=== PATIENT | male | born 1945 | race Caucasian/White ===

== ENCOUNTER 2016-10-16 15:20 | Inpatient (IN) | payer OTHER, BC ==
[~2016-10-16] VITALS: Ht 177.8 cm; Wt 87.0 kg
[~2016-10-16 15:20] MED LIST: ECOTRIN325 MG PO; FENOFIBRATE145 M1 PO; FLOVENT 11120 INHALA IH; FLOVENT DISKUS1 DIS2 IH; FUROSEMIDE40 MG PO; INDOCIN50 MG PO; K-DUR10 MEQ PO; KLOR-CON 1010 ME1 PO; LASIX40 MG PO; LISINOPRIL20 MG PO; PLAVIX75 MG PO; PRINIVIL20 MG PO; SOTALOL80 MG PO; STOOL SOFTENER1 EAC2 PO; STOOL SOFTENER100 MG PO; TOPROL XL6.25 MG PO; TRICOR145 MG PO
[2016-10-16 15:43] LABS: CREATININE 1.8 mg/dL (0.6-1.3); POTASSIUM 3.7 mEq/L (3.7-5.4)
[2016-10-16 15:57] LABS: BASE EXCESS -17.6 mEq/L (-3 to +3); BICARBONATE 9.6 mEq/L (22-26); METHEMOGLOBIN 0.8 % (0-1.5); PCO2 27 mm Hg (35-45); PO2 221 mm Hg (80-100); SITE ALINE; pH 7.16 (7.35-7.45)
[2016-10-16 15:58] LABS: COMMENTS - BLOOD GASES A+; DEVICE AMBU BAG; FI02 100 %; O2 FLOW 15 L/MIN
[2016-10-16 15:58] LABS: BASOPHIL COUNT 0.1 K/uL (0-0.1); EOSINOPHIL (%) 1.6 % (0-5); EOSINOPHIL COUNT 0.2 K/uL (0-0.3); IMMATURE GRANULOCYTE (%) 1.7 % (0.0-0.7); IMMATURE GRANULOCYTE COUNT 1.8 K/uL; LYMPHOCYTE COUNT 3.3 K/uL (1.0-2.8); MONOCYTE (%) 6.4 % (3-12); MONOCYTE COUNT 0.7 K/uL (0-0.8); NEUTROPHIL COUNT 6.3 K/uL (1.8-6.4)
[2016-10-16 16:08] LABS: INTER. NORMALIZED RATIO 1.6; PROTHROMBIN TIME 16.1 (9.2-11.2)
[2016-10-16 16:10] LABS: AMYLASE 48 IU/L (1-118); CHLORIDE 105 mEq/L (99-109); POTASSIUM 3.6 mEq/L (3.7-5.4); SODIUM 141 mEq/L (136-147)
[2016-10-16 16:12] LABS: GLUCOSE 233 mg/dL (70-99)
[2016-10-16 16:13] LABS: ANION GAP 21 MEQ/L (2-14)
[2016-10-16 16:15] LABS: SERUM ETHYL ALCOHOL < 10 mg/dL
[2016-10-16 16:16] LABS: GFR ESTIMATE (CALCULATED) 33 mL/min/
[2016-10-16 16:17] LABS: UREA NITROGEN (BUN) 36 mg/dL (9-23)
[2016-10-16 16:19] LABS: LIPASE 85 U/L (1.0-51.0)
[2016-10-16 16:21] LABS: TROP-I INTERPRETATION NEGATIVE; TROPONIN-I 0.11 ng/mL (0.0-0.30)
[2016-10-16 16:36] LABS: HEMATOCRIT 45.1 % (38.0-50.0); MCH 31.4 PG (29.0-34.0); MCHC 32.8 G/DL (30.0-36.0); MCV 95.6 FL (86-99); MEAN PLAT.VOLUME 13.2 uM^3 (9.0-12.4); PLAT.SUFFICIENCY DECREASED; PLATELET COUNT 118 K/uL (156-360); RBC DIS.WIDTH-CV 15.1 % (11.8-14.6); RBC DIS.WIDTH-SD 51.1 % (39-53); RED BLOOD COUNT 4.72 M/uL (4.00-5.50); WHITE BLOOD COUNT 10.7 K/uL (4.1-10.2)
[2016-10-16 19:00] VITALS: BP 104/41
[2016-10-16 19:44] LABS: BASE EXCESS 2.2 mEq/L (-3 to +3); CARBOXY HGB 2.2 % (0-5); METHEMOGLOBIN 1.4 % (0-1.5); PCO2 30 mm Hg (35-45)
[2016-10-16 19:45] LABS: BICARBONATE 24.5 mEq/L (22-26); COMMENTS - BLOOD GASES C+; DEVICE VENT; FI02 60 %; MECHANICAL RATE 16 resp/min; MODE AC; PEEP 5 CM/H20; PO2 79 mm Hg (80-100); SITE ALINE; TIDAL VOLUME 490 ML; TOTAL RESP RATE 32 resp/min; pH 7.52 (7.35-7.45)
[2016-10-16 19:56] LABS: METH RESISTANT S AUREUS PCR NEGATIVE (NEGATIVE)
[2016-10-16 20:00] VITALS: BP 152/49
[2016-10-16 20:04] LABS: PROBE CHECK PASS; SPECIMEN PROCESSING CONTROL PASS
[2016-10-16 20:15] LABS: MCH 30.5 PG (29.0-34.0); MCHC 33.1 G/DL (30.0-36.0); MCV 92.3 FL (86-99); MEAN PLAT.VOLUME 12.8 uM^3 (9.0-12.4); PLATELET COUNT 173 K/uL (156-360); RBC DIS.WIDTH-CV 14.6 % (11.8-14.6); RBC DIS.WIDTH-SD 49.6 % (39-53); WHITE BLOOD COUNT 15.3 K/uL (4.1-10.2)
[2016-10-16 20:18] LABS: INTER. NORMALIZED RATIO 1.8; PROTHROMBIN TIME 18.5 (9.2-11.2); PTT 24.3 (25-32)
[2016-10-16 20:31] LABS: TROP-I INTERPRETATION POSITIVE; TROPONIN-I 8.52 ng/mL (0.0-0.30)
[2016-10-16 20:39] LABS: ANION GAP 16 MEQ/L (2-14); CHLORIDE 107 MEQ/L (99-109); POTASSIUM 4.1 MEQ/L (3.7-5.4); SAMPLE HEMOLYSIS CHECK 0; SAMPLE ICTERIC CHECK 0; SAMPLE LIPEMIA CHECK 0; SODIUM 146 MEQ/L (136-147); TOTAL BILIRUBIN 2.2 MG/DL (0.0-1.0)
[2016-10-16 20:45] LABS: ALKALINE PHOSPHATASE 36 IU/L (3-129); GFR ESTIMATE (CALCULATED) 37 mL/min/; GLUCOSE 217 mg/dL (70-99); UREA NITROGEN (BUN) 38 mg/dL (9-23)
[2016-10-16 21:00] VITALS: BP 132/49
[2016-10-16 21:12] VITALS: BP 149/56
[2016-10-16 22:00] VITALS: BP 103/61
[2016-10-16 23:00] VITALS: BP 83/55
[2016-10-17] VITALS (14 sets, daily range): BP systolic 88–137; BP diastolic 51–76
[2016-10-17 00:27] LABS: CREATINE KINASE 922 IU/L (1-294); TOTAL CK 922 IU/L (1-294)
[2016-10-17 00:32] LABS: TROP-I INTERPRETATION POSITIVE
[2016-10-17 00:33] LABS: CK-MB 35.2 ng/mL (0.0-4.9)
[2016-10-17 02:11] LABS: MAGNESIUM 1.5 mg/dL (1.3-2.7)
[2016-10-17 07:07] LABS: EOSINOPHIL (%) 0 % (0-5); HEMATOCRIT 31.3 % (38.0-50.0); IMMATURE GRANULOCYTE (%) 0.1 % (0.0-0.7); LYMPHOCYTE COUNT 0.5 K/uL (1.0-2.8); MCH 30.2 PG (29.0-34.0); MCHC 33.2 G/DL (30.0-36.0); MEAN PLAT.VOLUME 12.6 uM^3 (9.0-12.4); MONOCYTE (%) 7.9 % (3-12); MONOCYTE COUNT 0.7 K/uL (0-0.8); NEUTROPHIL (%) 87.1 % (45-76); NEUTROPHIL COUNT 8.1 K/uL (1.8-6.4); PLATELET COUNT 142 K/uL (156-360); RBC DIS.WIDTH-SD 50.4 % (39-53); RED BLOOD COUNT 3.44 M/uL (4.00-5.50)
[2016-10-17 07:08] LABS: WHITE BLOOD COUNT 9.3 K/uL (4.1-10.2)
[2016-10-17 07:27] LABS: TROP-I INTERPRETATION POSITIVE
[2016-10-17 07:31] LABS: CK-MB 28.8 ng/mL (0.0-4.9)
[2016-10-17 07:34] LABS: TROPONIN-I 13.89 ng/mL (0.0-0.30)
[2016-10-17 07:50] LABS: CREATINE KINASE 731 IU/L (1-294); MAGNESIUM 1.5 mg/dl (1.3-2.7); SAMPLE HEMOLYSIS CHECK 0; SAMPLE ICTERIC CHECK 0; SAMPLE LIPEMIA CHECK 0; TOTAL CK 731 IU/L (1-294)
[2016-10-17 08:02] LABS: ALKALINE PHOSPHATASE 30 IU/L (3-129); ANION GAP 12 MEQ/L (2-14); CHLORIDE 109 MEQ/L (99-109); GFR ESTIMATE (CALCULATED) 24 mL/min/; GLUCOSE 158 mg/dL (70-99); POTASSIUM 3.8 MEQ/L (3.7-5.4); SODIUM 142 MEQ/L (136-147); TOTAL BILIRUBIN 2.2 MG/DL (0.0-1.0); UREA NITROGEN (BUN) 43 mg/dL (9-23)
[2016-10-17 09:04] LABS: ADD MIUA? YES; BILIRUBIN SMALL; BLOOD LARGE; COLOR DK YELLOW ((YELLOW)); GLUCOSE (STRIP) 100; KETONES TRACE; LEUKOCYTES TRACE; NITRITE NEGATIVE; PROTEIN (STRIP) 100; SPECIFIC GRAVITY 1.019 (1.000-1.030)
[2016-10-17 09:29] LABS: EPITHELIAL CELLS RARE
[2016-10-17 09:30] LABS: BACTERIA 2+; CASTS PRESENT /LPF; CRYSTALS NONE SEEN; MUCUS TRACE; UCUL ADDED? YES
[2016-10-17 09:39] LABS: AMPHETAMINES QUANT VALUE 0 NG/ML; BARBITUATES QUANT VALUE 0 NG/ML; BENZODIAZEPINES, URINE SCREEN POSITIVE (200 ng/mL); MARIJUANA QUANT VALUE 0 NG/ML; OPIATES QUANTITATIVE VALUE 0 NG/ML; PHENCYCLIDINE QUANT VALUE 0 NG/ML
[2016-10-17 12:15] LABS: CREATINE KINASE 616 IU/L (1-294); TOTAL CK 616 IU/L (1-294)
[2016-10-17 12:17] LABS: CK-MB 19.2 ng/mL (0.0-4.9); TROP-I INTERPRETATION POSITIVE
[2016-10-17 12:24] LABS: TROPONIN-I 10.63 ng/mL (0.0-0.30)
[2016-10-17 18:08] LABS: CREATINE KINASE 501 IU/L (1-294); TOTAL CK 501 IU/L (1-294)
[2016-10-17 18:11] LABS: TROP-I INTERPRETATION POSITIVE; TROPONIN-I 6.87 ng/mL (0.0-0.30)
[2016-10-17 18:33] LABS: CK-MB 10.5 ng/mL (0.0-4.9)
[2016-10-18 01:00] VITALS: BP 82/48
[2016-10-18 01:35] LABS: CHLORIDE 111 mEq/L (99-109); POTASSIUM 3.9 mEq/L (3.7-5.4); SODIUM 144 mEq/L (136-147)
[2016-10-18 01:37] LABS: INTER. NORMALIZED RATIO 1.6; PTT 30.1 (25-32)
[2016-10-18 01:38] LABS: GLUCOSE 155 mg/dL (70-99)
[2016-10-18 01:39] LABS: ANION GAP 13 MEQ/L (2-14)
[2016-10-18 01:40] LABS: TOTAL BILIRUBIN 2.3 mg/dL (0.0-1.0)
[2016-10-18 01:41] LABS: ALKALINE PHOSPHATASE 25 IU/L (3-129)
[2016-10-18 01:43] LABS: UREA NITROGEN (BUN) 53 mg/dL (9-23)
[2016-10-18 01:54] LABS: GFR ESTIMATE (CALCULATED) 16 mL/min/; MAGNESIUM 1.9 mg/dL (1.3-2.7)
[2016-10-18 02:00] LABS: HEMATOCRIT 19.4 % (38.0-50.0); MCH 30.5 PG (29.0-34.0); MCV 92.3 FL (86-99); MEAN PLAT.VOLUME 12.6 uM^3 (9.0-12.4); PLATELET COUNT 130 K/uL (156-360); RBC DIS.WIDTH-CV 15.3 % (11.8-14.6); RBC DIS.WIDTH-SD 49.3 % (39-53); WHITE BLOOD COUNT 8.5 K/uL (4.1-10.2)
[2016-10-18 02:07] LABS: FIBRINOGEN 141 MG/DL (160-450)
[2016-10-18 03:23] VITALS: BP 64/38
[2016-10-18 03:39] VITALS: BP 89/49
[2016-10-18 08:40] VITALS: BP 137/75
[2016-10-18 08:54] LABS: HEMATOCRIT 36.4 % (38.0-50.0); INTER. NORMALIZED RATIO 1.4; MCH 29.6 PG (29.0-34.0); MCHC 32.4 G/DL (30.0-36.0); MCV 91.2 FL (86-99); MEAN PLAT.VOLUME 12.5 uM^3 (9.0-12.4); PLATELET COUNT 94 K/uL (156-360); PROTHROMBIN TIME 14.7 (9.2-11.2); RBC DIS.WIDTH-CV 16.8 % (11.8-14.6); RBC DIS.WIDTH-SD 55.4 % (39-53); WHITE BLOOD COUNT 8.1 K/uL (4.1-10.2)
[2016-10-18 08:55] LABS: RED BLOOD COUNT 3.99 M/uL (4.00-5.50)
[2016-10-18 08:57] LABS: EOSINOPHIL (%) 0.1 % (0-5); HEMATOCRIT 35.7 % (38.0-50.0); IMMATURE GRANULOCYTE (%) 0.2 % (0.0-0.7); LYMPHOCYTE COUNT 0.4 K/uL (1.0-2.8); MCH 30.2 PG (29.0-34.0); MCHC 33.1 G/DL (30.0-36.0); MCV 91.3 FL (86-99); MEAN PLAT.VOLUME 12.9 uM^3 (9.0-12.4); MONOCYTE (%) 10.6 % (3-12); MONOCYTE COUNT 0.9 K/uL (0-0.8); NEUTROPHIL (%) 84.6 % (45-76); PLATELET COUNT 95 K/uL (156-360); RBC DIS.WIDTH-SD 55.6 % (39-53); WHITE BLOOD COUNT 8.3 K/uL (4.1-10.2)
[2016-10-18 08:58] LABS: RED BLOOD COUNT 3.91 M/uL (4.00-5.50)
[2016-10-18 09:19] LABS: ALKALINE PHOSPHATASE 28 IU/L (3-129); ANION GAP 15 MEQ/L (2-14); CHLORIDE 110 MEQ/L (99-109); GFR ESTIMATE (CALCULATED) 17 mL/min/; GLUCOSE 158 mg/dL (70-99); SAMPLE HEMOLYSIS CHECK 0; SAMPLE ICTERIC CHECK 1; SAMPLE LIPEMIA CHECK 0; SODIUM 145 MEQ/L (136-147); UREA NITROGEN (BUN) 51 mg/dL (9-23)
[2016-10-18 09:21] LABS: TOTAL BILIRUBIN 3.4 MG/DL (0.0-1.0)
[2016-10-18 10:45] VITALS: BP 143/82
[2016-10-18 11:45] VITALS: BP 134/78
[2016-10-18 12:10] LABS: HEMATOCRIT 36.6 % (38.0-50.0); MCV 90.4 FL (86-99)
[2016-10-18 15:59] LABS: HEMATOCRIT 37.1 % (38.0-50.0); MCV 89.8 FL (86-99)
[2016-10-18 18:05] LABS: INTER. NORMALIZED RATIO 1.4; PROTHROMBIN TIME 14.7 (9.2-11.2); PTT 28.2 (25-32)
[2016-10-18 18:16] LABS: ALKALINE PHOSPHATASE 30 IU/L (3-129); ANION GAP 19 MEQ/L (2-14); CHLORIDE 109 MEQ/L (99-109); GFR ESTIMATE (CALCULATED) 16 mL/min/; GLUCOSE 152 mg/dL (70-99); POTASSIUM 3.9 MEQ/L (3.7-5.4); SAMPLE HEMOLYSIS CHECK 0; SAMPLE ICTERIC CHECK 0; SAMPLE LIPEMIA CHECK 0; SODIUM 146 MEQ/L (136-147); TOTAL BILIRUBIN 3.2 MG/DL (0.0-1.0); UREA NITROGEN (BUN) 55 mg/dL (9-23)
[2016-10-18 18:57] LABS: HEMATOCRIT 36.8 % (38.0-50.0); MCV 89.1 FL (86-99)
[2016-10-18 20:48] LABS: POINT-OF-CARE METER ID UU13113748
[2016-10-18 23:12] LABS: HEMATOCRIT 36.4 % (38.0-50.0); MCV 87.5 FL (86-99)
[2016-10-18 23:44] LABS: POINT-OF-CARE METER ID UU14162636
[2016-10-19 03:21] LABS: HEMATOCRIT 34.8 % (38.0-50.0); MCV 86.6 FL (86-99)
[2016-10-19 05:55] LABS: POINT-OF-CARE METER ID UU14174217
[2016-10-19 07:40] LABS: HEMATOCRIT 34.6 % (38.0-50.0); MCH 29.9 PG (29.0-34.0); MCHC 33.5 G/DL (30.0-36.0); MCV 89.2 FL (86-99); MEAN PLAT.VOLUME 12.6 uM^3 (9.0-12.4); PLATELET COUNT 105 K/uL (156-360); RBC DIS.WIDTH-CV 16.8 % (11.8-14.6); RBC DIS.WIDTH-SD 54.2 % (39-53); RED BLOOD COUNT 3.88 M/uL (4.00-5.50); WHITE BLOOD COUNT 8.3 K/uL (4.1-10.2)
[2016-10-19 07:58] LABS: EOSINOPHIL (%) 0.1 % (0-5); IMMATURE GRANULOCYTE (%) 0.1 % (0.0-0.7); LYMPHOCYTE COUNT 0.4 K/uL (1.0-2.8); MONOCYTE (%) 14.1 % (3-12); MONOCYTE COUNT 1.2 K/uL (0-0.8); NEUTROPHIL (%) 80.6 % (45-76); NEUTROPHIL COUNT 6.7 K/uL (1.8-6.4)
[2016-10-19 08:12] LABS: ALKALINE PHOSPHATASE 26 IU/L (3-129); ANION GAP 15 MEQ/L (2-14); CHLORIDE 111 MEQ/L (99-109); GFR ESTIMATE (CALCULATED) 13 mL/min/; GLUCOSE 163 mg/dL (70-99); POTASSIUM 3.9 MEQ/L (3.7-5.4); SAMPLE HEMOLYSIS CHECK 0; SAMPLE ICTERIC CHECK 1; SAMPLE LIPEMIA CHECK 0; SODIUM 146 MEQ/L (136-147); TOTAL BILIRUBIN 3.4 MG/DL (0.0-1.0); UREA NITROGEN (BUN) 61 mg/dL (9-23)
[2016-10-19 11:00] VITALS: BP 134/78
[2016-10-19 11:08] LABS: HEMATOCRIT 34.6 % (38.0-50.0); MCV 88.7 FL (86-99)
[2016-10-19 15:01] LABS: HEMATOCRIT 34.4 % (38.0-50.0); MCV 88.7 FL (86-99)
[2016-10-19 18:25] LABS: POINT-OF-CARE METER ID UU14162636
[2016-10-19 19:11] LABS: HEMATOCRIT 34.6 % (38.0-50.0)
[2016-10-19 19:33] LABS: ANION GAP 15 MEQ/L (2-14); CHLORIDE 111 MEQ/L (99-109); GFR ESTIMATE (CALCULATED) 14 mL/min/; GLUCOSE 142 mg/dL (70-99); POTASSIUM 4.3 MEQ/L (3.7-5.4); SAMPLE HEMOLYSIS CHECK 2; SAMPLE ICTERIC CHECK 0; SAMPLE LIPEMIA CHECK 0; SODIUM 146 MEQ/L (136-147); UREA NITROGEN (BUN) 63 mg/dL (9-23)
[2016-10-19 21:00] VITALS: BP 138/85
[2016-10-19 23:46] LABS: HEMATOCRIT 34.3 % (38.0-50.0); MCV 88.6 FL (86-99)
[2016-10-20] VITALS (12 sets, daily range): BP systolic 114–148; BP diastolic 65–82
[2016-10-20 00:37] LABS: POINT-OF-CARE METER ID UU14174217
[2016-10-20 05:46] LABS: MCH 29.5 PG (29.0-34.0); MCHC 33.2 G/DL (30.0-36.0); MCV 88.8 FL (86-99); RBC DIS.WIDTH-CV 16.5 % (11.8-14.6); RBC DIS.WIDTH-SD 53.5 % (39-53); RED BLOOD COUNT 3.83 M/uL (4.00-5.50); WHITE BLOOD COUNT 8.9 K/uL (4.1-10.2)
[2016-10-20 05:57] LABS: POINT-OF-CARE METER ID UU13113731
[2016-10-20 06:16] LABS: ALKALINE PHOSPHATASE 29 IU/L (3-129); ANION GAP 16 MEQ/L (2-14); CHLORIDE 111 MEQ/L (99-109); GFR ESTIMATE (CALCULATED) 14 mL/min/; GLUCOSE 135 mg/dL (70-99); MAGNESIUM 2.2 mg/dl (1.3-2.7); SAMPLE HEMOLYSIS CHECK 2; SAMPLE ICTERIC CHECK 1; SAMPLE LIPEMIA CHECK 0; SODIUM 147 MEQ/L (136-147); UREA NITROGEN (BUN) 66 mg/dL (9-23)
[2016-10-20 06:17] LABS: EOSINOPHIL (%) 1.8 % (0-5); EOSINOPHIL COUNT 0.2 K/uL (0-0.3); IMMATURE GRANULOCYTE (%) 0.2 % (0.0-0.7); LYMPHOCYTE COUNT 0.7 K/uL (1.0-2.8); MEAN PLAT.VOLUME 12.9 uM^3 (9.0-12.4); MONOCYTE (%) 7.5 % (3-12); MONOCYTE COUNT 0.7 K/uL (0-0.8); NEUTROPHIL (%) 83.1 % (45-76); NEUTROPHIL COUNT 7.4 K/uL (1.8-6.4)
[2016-10-20 06:21] LABS: PLATELET COUNT 187 K/uL (156-360)
[2016-10-20 06:22] LABS: TOTAL BILIRUBIN 4.2 MG/DL (0.0-1.0)
[2016-10-20 06:23] LABS: POTASSIUM ND MEQ/L (3.7-5.4)
[2016-10-20 10:47] LABS: HEMATOCRIT 32.9 % (38.0-50.0); MCV 88.4 FL (86-99)
[2016-10-20 11:55] LABS: POINT-OF-CARE METER ID UU13113731
[2016-10-20 18:15] LABS: POINT-OF-CARE METER ID UU13113731
[2016-10-21] VITALS (25 sets, daily range): BP systolic 104–166; BP diastolic 58–110
[2016-10-21 01:28] LABS: UR CREATININE CONCENTRATION 104.5 MG/DL
[2016-10-21 01:56] LABS: POINT-OF-CARE METER ID UU14174217; POINT-OF-CARE USER ID 609231305
[2016-10-21 05:33] LABS: MCH 29.3 PG (29.0-34.0); MCHC 32.3 G/DL (30.0-36.0); MCV 90.7 FL (86-99); MEAN PLAT.VOLUME 12.2 uM^3 (9.0-12.4); PLATELET COUNT 149 K/uL (156-360); RBC DIS.WIDTH-CV 16.3 % (11.8-14.6); RBC DIS.WIDTH-SD 53.4 % (39-53); RED BLOOD COUNT 3.86 M/uL (4.00-5.50); WHITE BLOOD COUNT 9.8 K/uL (4.1-10.2)
[2016-10-21 06:17] LABS: EOSINOPHIL (%) 5.7 % (0-5); EOSINOPHIL COUNT 0.6 K/uL (0-0.3); IMMATURE GRANULOCYTE (%) 0.2 % (0.0-0.7); LYMPHOCYTE COUNT 0.7 K/uL (1.0-2.8); MONOCYTE (%) 6.5 % (3-12); MONOCYTE COUNT 0.6 K/uL (0-0.8); NEUTROPHIL (%) 79.7 % (45-76); NEUTROPHIL COUNT 7.8 K/uL (1.8-6.4)
[2016-10-21 06:42] LABS: ALKALINE PHOSPHATASE 34 IU/L (3-129); ANION GAP 15 MEQ/L (2-14); CHLORIDE 113 MEQ/L (99-109); GFR ESTIMATE (CALCULATED) 14 mL/min/; MAGNESIUM 2.2 mg/dl (1.3-2.7); POTASSIUM 3.7 MEQ/L (3.7-5.4); SAMPLE HEMOLYSIS CHECK 0; SAMPLE ICTERIC CHECK 1; SAMPLE LIPEMIA CHECK 0; SODIUM 149 MEQ/L (136-147); UREA NITROGEN (BUN) 67 mg/dL (9-23)
[2016-10-21 06:55] LABS: GLUCOSE 90 mg/dL (70-99)
[2016-10-21 12:15] LABS: HEMATOCRIT 34.5 % (38.0-50.0); MCV 90.3 FL (86-99)
[2016-10-21 15:59] LABS: HEMATOCRIT 35.8 % (38.0-50.0); MCV 90.9 FL (86-99)
[2016-10-21 17:25] LABS: BASE EXCESS -5.2 mEq/L (-3 to +3); CARBOXY HGB 3.2 % (0-5); METHEMOGLOBIN 1.3 % (0-1.5); PO2 85 mm Hg (80-100)
[2016-10-21 17:26] LABS: COMMENTS - BLOOD GASES A+C+; DEVICE VENT; FI02 30 %; MECHANICAL RATE 10 resp/min; MODE AC; PCO2 37 mm Hg (35-45); PEEP 5 CM/H20; SITE LR; TIDAL VOLUME 490 ML; TOTAL RESP RATE 18 resp/min; pH 7.34 (7.35-7.45)
[2016-10-21 17:46] LABS: POINT-OF-CARE METER ID UU14174217; POINT-OF-CARE USER ID 606021424
[2016-10-21 19:25] LABS: HEMATOCRIT 35.8 % (38.0-50.0); MCV 91.1 FL (86-99)
[2016-10-21 23:26] LABS: HEMATOCRIT 36.2 % (38.0-50.0); MCV 90.5 FL (86-99)
[2016-10-22] VITALS (22 sets, daily range): BP systolic 122–161; BP diastolic 62–90
[2016-10-22 03:36] LABS: HEMATOCRIT 35.3 % (38.0-50.0)
[2016-10-22 05:54] LABS: HEMATOCRIT 38.7 % (38.0-50.0); MCH 30.3 PG (29.0-34.0); MCHC 32.6 G/DL (30.0-36.0); MEAN PLAT.VOLUME 12.2 uM^3 (9.0-12.4); PLATELET COUNT 192 K/uL (156-360); RBC DIS.WIDTH-CV 16.3 % (11.8-14.6); RBC DIS.WIDTH-SD 55.6 % (39-53); RED BLOOD COUNT 4.16 M/uL (4.00-5.50); WHITE BLOOD COUNT 11.9 K/uL (4.1-10.2)
[2016-10-22 06:22] LABS: EOSINOPHIL (%) 5.4 % (0-5); EOSINOPHIL COUNT 0.6 K/uL (0-0.3); IMMATURE GRANULOCYTE (%) 0.3 % (0.0-0.7); LYMPHOCYTE COUNT 1.3 K/uL (1.0-2.8); MONOCYTE (%) 5.7 % (3-12); MONOCYTE COUNT 0.7 K/uL (0-0.8); NEUTROPHIL (%) 77.5 % (45-76); NEUTROPHIL COUNT 9.2 K/uL (1.8-6.4)
[2016-10-22 06:23] LABS: ALKALINE PHOSPHATASE 38 IU/L (3-129); ANION GAP 18 MEQ/L (2-14); CHLORIDE 113 MEQ/L (99-109); GFR ESTIMATE (CALCULATED) 14 mL/min/; GLUCOSE 94 mg/dL (70-99); MAGNESIUM 2.3 mg/dl (1.3-2.7); POTASSIUM 4.2 MEQ/L (3.7-5.4); SAMPLE HEMOLYSIS CHECK 0; SAMPLE ICTERIC CHECK 1; SAMPLE LIPEMIA CHECK 0; SODIUM 151 MEQ/L (136-147); TOTAL BILIRUBIN 4.7 MG/DL (0.0-1.0); UREA NITROGEN (BUN) 68 mg/dL (9-23)
[2016-10-22 12:00] LABS: BASE EXCESS -3.5 mEq/L (-3 to +3); BICARBONATE 21.4 mEq/L (22-26); CARBOXY HGB 2.9 % (0-5); COMMENTS - BLOOD GASES A+C+; DEVICE 840; FI02 30 %; METHEMOGLOBIN 1.4 % (0-1.5); MODE TC; PCO2 37 mm Hg (35-45); PEEP 5 CM/H20; PO2 102 mm Hg (80-100); SITE RR; TOTAL RESP RATE 20 resp/min; pH 7.37 (7.35-7.45)
[2016-10-23] VITALS (17 sets, daily range): BP systolic 119–169; BP diastolic 63–97
[2016-10-23 02:39] LABS: HEMATOCRIT 36.7 % (38.0-50.0); MCV 90.8 FL (86-99)
[2016-10-23 05:46] LABS: POINT-OF-CARE METER ID UU14162636
[2016-10-23 06:27] LABS: EOSINOPHIL (%) 7.3 % (0-5); EOSINOPHIL COUNT 0.6 K/uL (0-0.3); HEMATOCRIT 35.2 % (38.0-50.0); IMMATURE GRANULOCYTE (%) 0.5 % (0.0-0.7); LYMPHOCYTE COUNT 0.8 K/uL (1.0-2.8); MCH 29.8 PG (29.0-34.0); MCHC 32.7 G/DL (30.0-36.0); MCV 91.2 FL (86-99); MEAN PLAT.VOLUME 12.1 uM^3 (9.0-12.4); MONOCYTE (%) 5.5 % (3-12); MONOCYTE COUNT 0.4 K/uL (0-0.8); NEUTROPHIL (%) 76.8 % (45-76); NEUTROPHIL COUNT 6.2 K/uL (1.8-6.4); PLATELET COUNT 198 K/uL (156-360); RBC DIS.WIDTH-CV 15.9 % (11.8-14.6); RBC DIS.WIDTH-SD 52.8 % (39-53); RED BLOOD COUNT 3.86 M/uL (4.00-5.50)
[2016-10-23 06:44] LABS: ALKALINE PHOSPHATASE 37 IU/L (3-129); ANION GAP 14 MEQ/L (2-14); CHLORIDE 116 MEQ/L (99-109); GFR ESTIMATE (CALCULATED) 17 mL/min/; GLUCOSE 115 mg/dL (70-99); MAGNESIUM 2.3 mg/dl (1.3-2.7); SAMPLE HEMOLYSIS CHECK 0; SAMPLE ICTERIC CHECK 1; SAMPLE LIPEMIA CHECK 0; SODIUM 152 MEQ/L (136-147); TOTAL BILIRUBIN 4.6 MG/DL (0.0-1.0); UREA NITROGEN (BUN) 69 mg/dL (9-23)
[2016-10-23 11:30] LABS: POINT-OF-CARE METER ID UU14162636; POINT-OF-CARE USER ID 606021424
[2016-10-23 17:46] LABS: POINT-OF-CARE METER ID UU13113748
[2016-10-24] VITALS: BP 166/81
[2016-10-24 00:22] LABS: POINT-OF-CARE METER ID UU13113748
[2016-10-24 02:47] LABS: HEMATOCRIT 36.5 % (38.0-50.0); MCV 91.3 FL (86-99)
[2016-10-24 04:00] VITALS: BP 160/97
[2016-10-24 05:31] LABS: POINT-OF-CARE METER ID UU13113731
[2016-10-24 06:32] LABS: EOSINOPHIL (%) 3.9 % (0-5); EOSINOPHIL COUNT 0.5 K/uL (0-0.3); IMMATURE GRANULOCYTE (%) 0.7 % (0.0-0.7); IMMATURE GRANULOCYTE COUNT 0.1 K/uL; LYMPHOCYTE COUNT 1.2 K/uL (1.0-2.8); MCH 30.1 PG (29.0-34.0); MCHC 32.9 G/DL (30.0-36.0); MCV 91.6 FL (86-99); MEAN PLAT.VOLUME 12.3 uM^3 (9.0-12.4); MONOCYTE (%) 4.8 % (3-12); MONOCYTE COUNT 0.6 K/uL (0-0.8); NEUTROPHIL (%) 79.7 % (45-76); NEUTROPHIL COUNT 9.2 K/uL (1.8-6.4); RBC DIS.WIDTH-CV 15.9 % (11.8-14.6); RBC DIS.WIDTH-SD 52.6 % (39-53); RED BLOOD COUNT 4.15 M/uL (4.00-5.50)
[2016-10-24 06:35] LABS: PLATELET COUNT 296 K/uL (156-360); WHITE BLOOD COUNT 11.6 K/uL (4.1-10.2)
[2016-10-24 06:51] LABS: ALKALINE PHOSPHATASE 51 IU/L (3-129); ANION GAP 16 MEQ/L (2-14); CHLORIDE 114 MEQ/L (99-109); GFR ESTIMATE (CALCULATED) 19 mL/min/; GLUCOSE 164 mg/dL (70-99); MAGNESIUM 2.4 mg/dl (1.3-2.7); POTASSIUM 4.1 MEQ/L (3.7-5.4); SAMPLE HEMOLYSIS CHECK 0; SAMPLE ICTERIC CHECK 1; SAMPLE LIPEMIA CHECK 0; SODIUM 153 MEQ/L (136-147); UREA NITROGEN (BUN) 66 mg/dL (9-23)
[2016-10-24 08:00] VITALS: BP 176/93
[2016-10-24 12:00] VITALS: BP 134/79
[2016-10-24 13:15] LABS: POINT-OF-CARE METER ID UU14162636
[2016-10-24 16:00] VITALS: BP 149/80
[2016-10-24 20:00] VITALS: BP 157/84
[2016-10-25] VITALS (7 sets, daily range): BP systolic 0–151; BP diastolic 0–88
[2016-10-25 00:19] LABS: BASE EXCESS -1.7 mEq/L (-3 to +3); BICARBONATE 21.7 mEq/L (22-26); CARBOXY HGB 2.7 % (0-5); COMMENTS - BLOOD GASES C+A+; DEVICE HHFNC; FI02 40 %; METHEMOGLOBIN 1.6 % (0-1.5); O2 FLOW 40 L/MIN; PCO2 32 mm Hg (35-45); PO2 129 mm Hg (80-100); SITE RR; TOTAL RESP RATE 40 resp/min; pH 7.44 (7.35-7.45)
[2016-10-25 01:16] LABS: POINT-OF-CARE METER ID UU14174217
[2016-10-25 05:51] LABS: POINT-OF-CARE METER ID UU14174217
[2016-10-25 06:19] LABS: HEMATOCRIT 34.2 % (38.0-50.0); MCH 30.1 PG (29.0-34.0); MCHC 32.5 G/DL (30.0-36.0); MCV 92.7 FL (86-99); MEAN PLAT.VOLUME 12.3 uM^3 (9.0-12.4); PLATELET COUNT 251 K/uL (156-360); RBC DIS.WIDTH-CV 16.1 % (11.8-14.6); RED BLOOD COUNT 3.69 M/uL (4.00-5.50); WHITE BLOOD COUNT 8.7 K/uL (4.1-10.2)
[2016-10-25 06:41] LABS: BASOPHIL COUNT 0.1 K/uL (0-0.1); EOSINOPHIL (%) 5.6 % (0-5); EOSINOPHIL COUNT 0.5 K/uL (0-0.3); IMMATURE GRANULOCYTE (%) 0.8 % (0.0-0.7); IMMATURE GRANULOCYTE COUNT 0.1 K/uL; LYMPHOCYTE COUNT 0.6 K/uL (1.0-2.8); MONOCYTE (%) 7.7 % (3-12); MONOCYTE COUNT 0.7 K/uL (0-0.8); NEUTROPHIL COUNT 6.8 K/uL (1.8-6.4)
[2016-10-25 06:45] LABS: ALKALINE PHOSPHATASE 45 IU/L (3-129); ANION GAP 12 MEQ/L (2-14); CHLORIDE 117 MEQ/L (99-109); GFR ESTIMATE (CALCULATED) 21 mL/min/; GLUCOSE 126 mg/dL (70-99); MAGNESIUM 2.1 mg/dl (1.3-2.7); POTASSIUM 3.8 MEQ/L (3.7-5.4); SAMPLE HEMOLYSIS CHECK 0; SAMPLE ICTERIC CHECK 1; SAMPLE LIPEMIA CHECK 0; SODIUM 152 MEQ/L (136-147); UREA NITROGEN (BUN) 57 mg/dL (9-23)
[2016-10-25 06:47] LABS: TOTAL BILIRUBIN 3.8 MG/DL (0.0-1.0)
[2016-10-25 18:08] LABS: POINT-OF-CARE METER ID UU13113748
[2016-10-25 23:45] LABS: POINT-OF-CARE USER ID PHATLC
[2016-10-26] VITALS: BP 131/78
[2016-10-26 04:00] VITALS: BP 148/77
[2016-10-26 06:03] LABS: POINT-OF-CARE METER ID UU13113803; POINT-OF-CARE USER ID PHATLC
[2016-10-26 06:26] LABS: ALKALINE PHOSPHATASE 57 IU/L (3-129); ANION GAP 12 MEQ/L (2-14); CHLORIDE 112 MEQ/L (99-109); GFR ESTIMATE (CALCULATED) 23 mL/min/; GLUCOSE 155 mg/dL (70-99); SAMPLE HEMOLYSIS CHECK 0; SAMPLE ICTERIC CHECK 1; SAMPLE LIPEMIA CHECK 0; SODIUM 147 MEQ/L (136-147); TOTAL BILIRUBIN 3.8 MG/DL (0.0-1.0); UREA NITROGEN (BUN) 49 mg/dL (9-23)
[2016-10-26 07:34] LABS: BASOPHIL COUNT 0.1 K/uL (0-0.1); EOSINOPHIL (%) 5.6 % (0-5); EOSINOPHIL COUNT 0.7 K/uL (0-0.3); HEMATOCRIT 36.2 % (38.0-50.0); IMMATURE GRANULOCYTE (%) 0.8 % (0.0-0.7); IMMATURE GRANULOCYTE COUNT 0.1 K/uL; LYMPHOCYTE COUNT 0.5 K/uL (1.0-2.8); MCH 29.2 PG (29.0-34.0); MCHC 31.5 G/DL (30.0-36.0); MCV 92.8 FL (86-99); MEAN PLAT.VOLUME 12.1 uM^3 (9.0-12.4); MONOCYTE (%) 8.1 % (3-12); NEUTROPHIL (%) 80.7 % (45-76); NEUTROPHIL COUNT 9.5 K/uL (1.8-6.4); PLATELET COUNT 311 K/uL (156-360); RBC DIS.WIDTH-CV 16.1 % (11.8-14.6); RBC DIS.WIDTH-SD 54.4 % (39-53)
[2016-10-26 07:50] LABS: WHITE BLOOD COUNT 11.8 K/uL (4.1-10.2)
[2016-10-26 08:00] VITALS: BP 112/70
[2016-10-26 11:45] VITALS: BP 150/89
[2016-10-26 16:46] VITALS: BP 159/74
[2016-10-26 20:22] VITALS: BP 143/82
[2016-10-27 00:15] VITALS: BP 144/86
[2016-10-27 05:01] VITALS: BP 139/90
[2016-10-27 06:34] LABS: HEMATOCRIT 31.9 % (38.0-50.0); MCH 29.8 PG (29.0-34.0); MCV 93.3 FL (86-99); MEAN PLAT.VOLUME 11.9 uM^3 (9.0-12.4); PLATELET COUNT 292 K/uL (156-360); RBC DIS.WIDTH-CV 16.1 % (11.8-14.6); RBC DIS.WIDTH-SD 54.1 % (39-53); RED BLOOD COUNT 3.42 M/uL (4.00-5.50); WHITE BLOOD COUNT 10.4 K/uL (4.1-10.2)
[2016-10-27 07:03] LABS: ALKALINE PHOSPHATASE 52 IU/L (3-129); ANION GAP 10 MEQ/L (2-14); CHLORIDE 110 MEQ/L (99-109); EOSINOPHIL (%) 4.1 % (0-5); EOSINOPHIL COUNT 0.4 K/uL (0-0.3); GFR ESTIMATE (CALCULATED) 27 mL/min/; GLUCOSE 128 mg/dL (70-99); IMMATURE GRANULOCYTE (%) 0.5 % (0.0-0.7); IMMATURE GRANULOCYTE COUNT 0.1 K/uL; LYMPHOCYTE COUNT 0.5 K/uL (1.0-2.8); MAGNESIUM 1.7 mg/dl (1.3-2.7); MONOCYTE (%) 9.7 % (3-12); NEUTROPHIL (%) 80.6 % (45-76); NEUTROPHIL COUNT 8.4 K/uL (1.8-6.4); POTASSIUM 3.7 MEQ/L (3.7-5.4); SAMPLE HEMOLYSIS CHECK 0; SAMPLE ICTERIC CHECK 1; SAMPLE LIPEMIA CHECK 0; SODIUM 143 MEQ/L (136-147); TOTAL BILIRUBIN 3.5 MG/DL (0.0-1.0); UREA NITROGEN (BUN) 39 mg/dL (9-23)
[2016-10-27 08:05] VITALS: BP 143/85
[2016-10-27 11:46] VITALS: BP 152/72
[2016-10-27 11:54] LABS: POINT-OF-CARE METER ID UU14174216
[2016-10-27 15:16] VITALS: BP 148/78
[2016-10-27 18:32] LABS: POINT-OF-CARE METER ID UU14174216
[2016-10-27 21:10] VITALS: BP 174/88
[2016-10-27 21:29] LABS: POINT-OF-CARE METER ID UU13113698
[2016-10-28 00:58] VITALS: BP 170/80
[2016-10-28 05:07] VITALS: BP 171/85
[2016-10-28 06:33] LABS: HEMATOCRIT 33.8 % (38.0-50.0); MCH 29.4 PG (29.0-34.0); MCV 92.1 FL (86-99); MEAN PLAT.VOLUME 12.1 uM^3 (9.0-12.4); PLATELET COUNT 352 K/uL (156-360); RBC DIS.WIDTH-CV 15.9 % (11.8-14.6); RBC DIS.WIDTH-SD 52.9 % (39-53); RED BLOOD COUNT 3.67 M/uL (4.00-5.50)
[2016-10-28 06:45] LABS: WHITE BLOOD COUNT 15.6 K/uL (4.1-10.2)
[2016-10-28 06:53] LABS: ALKALINE PHOSPHATASE 75 IU/L (3-129); ANION GAP 12 MEQ/L (2-14); CHLORIDE 107 MEQ/L (99-109); GFR ESTIMATE (CALCULATED) 30 mL/min/; GLUCOSE 144 mg/dL (70-99); MAGNESIUM 1.7 mg/dl (1.3-2.7); POTASSIUM 3.9 MEQ/L (3.7-5.4); SAMPLE HEMOLYSIS CHECK 0; SAMPLE ICTERIC CHECK 1; SAMPLE LIPEMIA CHECK 0; SODIUM 141 MEQ/L (136-147); UREA NITROGEN (BUN) 33 mg/dL (9-23)
[2016-10-28 08:25] VITALS: BP 179/86
[2016-10-28 11:30] LABS: POINT-OF-CARE METER ID UU13113781
[2016-10-28 12:00] VITALS: BP 142/81
[2016-10-28 15:10] VITALS: BP 135/84
[2016-10-28 16:34] LABS: POINT-OF-CARE METER ID UU13113698
[2016-10-28 21:10] VITALS: BP 159/99
[2016-10-28 21:18] LABS: POINT-OF-CARE METER ID UU13113698
[2016-10-28 21:38] LABS: ADD MIUA? YES; BILIRUBIN SMALL; BLOOD NEGATIVE; COLOR DK YELLOW ((YELLOW)); GLUCOSE (STRIP) NEGATIVE; KETONES NEGATIVE; LEUKOCYTES NEGATIVE; NITRITE NEGATIVE; PROTEIN (STRIP) 30; SPECIFIC GRAVITY 1.022 (1.000-1.030)
[2016-10-28 21:57] LABS: AMORPHOUS URATES CRYSTALS 2+; BACTERIA NONE SEEN /HPF; CASTS NONE SEEN /LPF; CRYSTALS PRESENT; EPITHELIAL CELLS NONE SEEN /HPF; MUCUS 1+ /LPF; RED BLOOD CELLS 0-5 /HPF (0-5); UCUL ADDED? NO; WHITE BLOOD CELLS 0-5 /HPF (0-5)
[2016-10-29] VITALS (7 sets, daily range): BP systolic 157–187; BP diastolic 82–99
[2016-10-29 06:59] LABS: ALKALINE PHOSPHATASE 83 IU/L (3-129); ANION GAP 15 MEQ/L (2-14); CHLORIDE 102 MEQ/L (99-109); GFR ESTIMATE (CALCULATED) 29 mL/min/; GLUCOSE 181 mg/dL (70-99); MAGNESIUM 1.7 mg/dl (1.3-2.7); POTASSIUM 4.3 MEQ/L (3.7-5.4); SAMPLE HEMOLYSIS CHECK 0; SAMPLE ICTERIC CHECK 1; SAMPLE LIPEMIA CHECK 0; SODIUM 136 MEQ/L (136-147); TOTAL BILIRUBIN 4.8 MG/DL (0.0-1.0); UREA NITROGEN (BUN) 32 mg/dL (9-23)
[2016-10-29 11:39] LABS: POINT-OF-CARE METER ID UU13113698
[2016-10-29 16:11] LABS: POINT-OF-CARE METER ID UU13113698
[2016-10-29 20:46] LABS: POINT-OF-CARE METER ID UU13113698
[2016-10-30] VITALS (7 sets, daily range): BP systolic 125–189; BP diastolic 82–99
[2016-10-30 06:01] LABS: HEMATOCRIT 32.6 % (38.0-50.0); MCH 29.7 PG (29.0-34.0); MCHC 32.5 G/DL (30.0-36.0); MCV 91.3 FL (86-99); MEAN PLAT.VOLUME 12.3 uM^3 (9.0-12.4); PLATELET COUNT 421 K/uL (156-360); RBC DIS.WIDTH-SD 52.7 % (39-53); RED BLOOD COUNT 3.57 M/uL (4.00-5.50); WHITE BLOOD COUNT 16.5 K/uL (4.1-10.2)
[2016-10-30 06:26] LABS: ANION GAP 11 MEQ/L (2-14); CHLORIDE 104 MEQ/L (99-109); GFR ESTIMATE (CALCULATED) 30 mL/min/; GLUCOSE 129 mg/dL (70-99); POTASSIUM 3.9 MEQ/L (3.7-5.4); SAMPLE HEMOLYSIS CHECK 0; SAMPLE ICTERIC CHECK 1; SAMPLE LIPEMIA CHECK 0; SODIUM 137 MEQ/L (136-147); UREA NITROGEN (BUN) 35 mg/dL (9-23)
[2016-10-30 07:04] LABS: ALKALINE PHOSPHATASE 84 IU/L (3-129); ANION GAP 14 MEQ/L (2-14); CHLORIDE 104 MEQ/L (99-109); GFR ESTIMATE (CALCULATED) 30 mL/min/; GLUCOSE 127 mg/dL (70-99); MAGNESIUM 1.7 mg/dl (1.3-2.7); POTASSIUM 4.1 MEQ/L (3.7-5.4); SAMPLE HEMOLYSIS CHECK 0; SAMPLE ICTERIC CHECK 1; SAMPLE LIPEMIA CHECK 0; SODIUM 139 MEQ/L (136-147); TOTAL BILIRUBIN 4.4 MG/DL (0.0-1.0); UREA NITROGEN (BUN) 34 mg/dL (9-23)
[2016-10-30 11:33] LABS: POINT-OF-CARE METER ID UU14174216; POINT-OF-CARE USER ID NUTSLF44
[2016-10-30 16:49] LABS: POINT-OF-CARE METER ID UU13113698; POINT-OF-CARE USER ID NUTSLF44
[2016-10-31 03:42] VITALS: BP 163/79
[2016-10-31 05:49] LABS: MCH 29.6 PG (29.0-34.0); MCHC 32.6 G/DL (30.0-36.0); MCV 90.9 FL (86-99); MEAN PLAT.VOLUME 11.9 uM^3 (9.0-12.4); PLATELET COUNT 420 K/uL (156-360); RBC DIS.WIDTH-SD 52.3 % (39-53); RED BLOOD COUNT 3.41 M/uL (4.00-5.50)
[2016-10-31 06:02] LABS: BASOPHIL COUNT 0.1 K/uL (0-0.1); EOSINOPHIL (%) 5.9 % (0-5); EOSINOPHIL COUNT 0.7 K/uL (0-0.3); IMMATURE GRANULOCYTE (%) 0.6 % (0.0-0.7); IMMATURE GRANULOCYTE COUNT 0.1 K/uL; LYMPHOCYTE COUNT 0.7 K/uL (1.0-2.8); MONOCYTE (%) 9.6 % (3-12); MONOCYTE COUNT 1.2 K/uL (0-0.8); NEUTROPHIL (%) 77.3 % (45-76); NEUTROPHIL COUNT 9.3 K/uL (1.8-6.4)
[2016-10-31 06:17] LABS: ALKALINE PHOSPHATASE 77 IU/L (3-129); ANION GAP 8 MEQ/L (2-14); CHLORIDE 106 MEQ/L (99-109); GFR ESTIMATE (CALCULATED) 32 mL/min/; GLUCOSE 112 mg/dL (70-99); MAGNESIUM 1.7 mg/dl (1.3-2.7); SAMPLE HEMOLYSIS CHECK 0; SAMPLE ICTERIC CHECK 1; SAMPLE LIPEMIA CHECK 0; SODIUM 140 MEQ/L (136-147); TOTAL BILIRUBIN 3.4 MG/DL (0.0-1.0); UREA NITROGEN (BUN) 34 mg/dL (9-23)
[2016-10-31 07:55] LABS: POINT-OF-CARE METER ID UU13113698
[2016-10-31 09:00] VITALS: BP 158/80
[2016-10-31 11:31] LABS: POINT-OF-CARE METER ID UU14174216
[2016-10-31 12:00] VITALS: BP 145/78
[2016-10-31 16:29] LABS: POINT-OF-CARE METER ID UU13113698
[2016-10-31 18:19] VITALS: BP 155/93
[2016-10-31 19:05] VITALS: BP 134/90
[2016-10-31 23:20] VITALS: BP 181/97
[2016-11-01 06:36] LABS: HEMATOCRIT 34.2 % (38.0-50.0); MCH 29.7 PG (29.0-34.0); MCHC 32.5 G/DL (30.0-36.0); MCV 91.4 FL (86-99); MEAN PLAT.VOLUME 11.8 uM^3 (9.0-12.4); PLATELET COUNT 415 K/uL (156-360); RBC DIS.WIDTH-CV 16.7 % (11.8-14.6); RBC DIS.WIDTH-SD 52.6 % (39-53); RED BLOOD COUNT 3.74 M/uL (4.00-5.50); WHITE BLOOD COUNT 12.4 K/uL (4.1-10.2)
[2016-11-01 06:49] LABS: INTER. NORMALIZED RATIO 1.5; PROTHROMBIN TIME 15.4 (9.2-11.2); PTT 29.2 (25-32)
[2016-11-01 06:55] LABS: ANION GAP 11 MEQ/L (2-14); CHLORIDE 107 MEQ/L (99-109); GFR ESTIMATE (CALCULATED) 30 mL/min/; GLUCOSE 149 mg/dL (70-99); POTASSIUM 3.8 MEQ/L (3.7-5.4); SAMPLE HEMOLYSIS CHECK 0; SAMPLE ICTERIC CHECK 1; SAMPLE LIPEMIA CHECK 0; SODIUM 142 MEQ/L (136-147); UREA NITROGEN (BUN) 31 mg/dL (9-23)
[2016-11-01 06:56] LABS: ALKALINE PHOSPHATASE 89 IU/L (3-129); ANION GAP 12 MEQ/L (2-14); CHLORIDE 107 MEQ/L (99-109); GFR ESTIMATE (CALCULATED) 32 mL/min/; GLUCOSE 146 mg/dL (70-99); MAGNESIUM 1.7 mg/dl (1.3-2.7); POTASSIUM 3.8 MEQ/L (3.7-5.4); SAMPLE HEMOLYSIS CHECK 0; SAMPLE ICTERIC CHECK 1; SAMPLE LIPEMIA CHECK 0; SODIUM 143 MEQ/L (136-147); TOTAL BILIRUBIN 3.5 MG/DL (0.0-1.0); UREA NITROGEN (BUN) 30 mg/dL (9-23)
[2016-11-01 07:59] LABS: FERRITIN 848 NG/ML (22-322)
[2016-11-01 08:46] LABS: POINT-OF-CARE USER ID NUTSLF44
[2016-11-01 08:53] VITALS: BP 144/76
[2016-11-01 12:00] VITALS: BP 171/81
[2016-11-01 12:20] LABS: POINT-OF-CARE METER ID UU14174216; POINT-OF-CARE USER ID NUTSLF44
[2016-11-01 17:28] LABS: POINT-OF-CARE METER ID UU13113698; POINT-OF-CARE USER ID NUTSLF44
[2016-11-01 18:00] VITALS: BP 166/83
[2016-11-01 19:26] VITALS: BP 198/89
[2016-11-01 23:30] VITALS: BP 184/92
[2016-11-02] VITALS (8 sets, daily range): BP systolic 120–187; BP diastolic 70–98
[2016-11-02 07:37] LABS: ALKALINE PHOSPHATASE 84 IU/L (3-129); ANION GAP 11 MEQ/L (2-14); CHLORIDE 110 MEQ/L (99-109); GFR ESTIMATE (CALCULATED) 35 mL/min/; MAGNESIUM 1.8 mg/dl (1.3-2.7); POTASSIUM 3.9 MEQ/L (3.7-5.4); SAMPLE HEMOLYSIS CHECK 1; SAMPLE ICTERIC CHECK 0; SAMPLE LIPEMIA CHECK 0; SODIUM 146 MEQ/L (136-147); TOTAL BILIRUBIN 3.4 MG/DL (0.0-1.0); UREA NITROGEN (BUN) 26 mg/dL (9-23)
[2016-11-02 07:38] LABS: GLUCOSE 95 mg/dL (70-99)
[2016-11-03 04:11] VITALS: BP 186/95
[2016-11-03 06:55] LABS: HEMATOCRIT 32.6 % (38.0-50.0); MCH 29.6 PG (29.0-34.0); MCHC 32.2 G/DL (30.0-36.0); MCV 91.8 FL (86-99); MEAN PLAT.VOLUME 11.5 uM^3 (9.0-12.4); PLATELET COUNT 364 K/uL (156-360); RBC DIS.WIDTH-CV 17.2 % (11.8-14.6); RBC DIS.WIDTH-SD 56.5 % (39-53); RED BLOOD COUNT 3.55 M/uL (4.00-5.50); WHITE BLOOD COUNT 10.8 K/uL (4.1-10.2)
[2016-11-03 07:22] LABS: ALKALINE PHOSPHATASE 96 IU/L (3-129); ANION GAP 10 MEQ/L (2-14); CHLORIDE 110 MEQ/L (99-109); GFR ESTIMATE (CALCULATED) 37 mL/min/; GLUCOSE 117 mg/dL (70-99); MAGNESIUM 1.9 mg/dl (1.3-2.7); SAMPLE HEMOLYSIS CHECK 0; SAMPLE ICTERIC CHECK 0; SAMPLE LIPEMIA CHECK 0; SODIUM 148 MEQ/L (136-147); TOTAL BILIRUBIN 3.2 MG/DL (0.0-1.0); UREA NITROGEN (BUN) 27 mg/dL (9-23)
[2016-11-03 08:19] VITALS: BP 147/74
[2016-11-03 11:17] VITALS: BP 170/75
[2016-11-03] MEDS ORDERED: DUONEB 2.5-0.5 M3 ML AEROSOL (12:17)
[2016-11-03] MEDS ORDERED: HEPARIN SO5000 UNITS SC (12:17)
[2016-11-03] MEDS ORDERED: LOPRESSOR25 MG PO (12:18)
[2016-11-03] MEDS ORDERED: CLONIDINE HCL0.1 MG PO (12:18)
[2016-11-03] MEDS ORDERED: GUAIFENESI100 MG/5 M PO (12:20)
[2016-11-03] MEDS ORDERED: BISAC-EVAC10 MG PR (12:20)
[2016-11-03] MEDS ORDERED: SENNA PLUS TAB1 EACH PO (12:21)
[2016-11-03] MEDS ORDERED: MILK OF MAGNESI10 ML PO (12:22)
[2016-11-03] MEDS ORDERED: LORAZEPAM0.5 MG PO ×2 (12:25→12:44)
[2016-11-03] MEDS ORDERED: TRAMADOL HCL50 MG PO (12:25)
[2016-11-03 14:14] VITALS: BP 145/78
== END 2016-11-03 15:16 | DRG 264 ==
LOC: EDBD 15:20 → EME 15:20 → EDOF 17:02 → 4EAST 17:02 → EDOF 17:02 → 4WEST 17:02 → 4EAST 10-26 11:29
PROVIDERS: Emergency Medicine; Internal Medicine; Internal Medicine Nephrology; Specialist; Surgery
DX: R57.0 Cardiogenic shock (principal); I49.01 Ventricular fibrillation; I21.3 ST elevation (STEMI) myocardial infarction of unspecified site; S36.115A Moderate laceration of liver, initial encounter; S22.31XA Fracture of one rib, right side, initial encounter for closed fracture; Y84.8 Other medical procedures as the cause of abnormal reaction of the patient, or of later complication, without mention of misadventure at the time of the procedure; E87.2 Acidosis; N17.9 Acute kidney failure, unspecified; J96.00 Acute respiratory failure, unspecified whether with hypoxia or hypercapnia; R40.20 Unspecified coma; D68.9 Coagulation defect, unspecified; G93.1 Anoxic brain damage, not elsewhere classified; R57.8 Other shock; E87.0 Hyperosmolality and hypernatremia; I11.0 Hypertensive heart disease with heart failure; I50.9 Heart failure, unspecified; E78.5 Hyperlipidemia, unspecified; I25.10 Atherosclerotic heart disease of native coronary artery without angina pectoris; I25.5 Ischemic cardiomyopathy; K21.9 Gastro-esophageal reflux disease without esophagitis; D64.9 Anemia, unspecified; R13.10 Dysphagia, unspecified; R33.9 Retention of urine, unspecified; Z95.810 Presence of automatic (implantable) cardiac defibrillator; Z95.1 Presence of aortocoronary bypass graft; I25.2 Old myocardial infarction; Z87.891 Personal history of nicotine dependence
CPT/HCPCS: 31720; 36600; 70450; 71010; 71250; 74176; 74230; 80047; 80048; 80048 91; 80053; 81003; 82150; 82436; 82550; 82550 91; 82553; 82570; 82728; 82803; 82948; 83605; 83690; 83735; 84100; 84133; 84300; 84466; 84484; 85014; 85018; 85025; 85027; 85384; 85610; 85730; 86850; 86900; 86901; 86920; 86965; 87040; 87070; 87086; 87205; 87641; 92523 GN; 92526 GN; 92610 GN; 92611 GN; 93005; 93306; 94002; 94003; 94640; 94640 76; 94667; 94668; 94760; 94799; 95819; 97530 GO; 97530 GP; 99202; 99281; 99285; G0480; J0282; J0461; J1250; J1335; J1630; J1644; J1815; J1940; J2060; J2250; J2270; J2543; J2704; J3010; J3370; J3475; J7050; J7070; J7120; P9012; P9016; P9017; P9035; P9045; S0028

== ENCOUNTER 2017-01-29 20:37 | Emergency (ER) | payer OTHER, BC ==
[~2017-01-29] VITALS: Ht 182.9 cm; Wt 85.0 kg
[~2017-01-29 20:37] MED LIST changes: +BISAC-EVAC10 MG PR; +CLONIDINE HCL0.1 MG PO; +DUONEB 2.5-0.5 M3 ML AEROSOL; +GUAIFENESI100 MG/5 M PO; +HEPARIN SO5000 UNITS SC; +LOPRESSOR25 MG PO; +LORAZEPAM0.5 MG PO; +MILK OF MAGNESI10 ML PO; +SENNA PLUS TAB1 EACH PO; +TRAMADOL HCL50 MG PO
[2017-01-29] MEDS ORDERED: LISINOPRIL5 MG PO (20:47)
[2017-01-29] MEDS ORDERED: KLOR-CON 1010 ME1 PO (20:47)
[2017-01-29] MEDS ORDERED: SOTALOL80 MG PO (20:47)
[2017-01-29 22:09] LABS: BASOPHIL COUNT 0.1 K/uL (0-0.1); EOSINOPHIL COUNT 0.1 K/uL (0-0.3); HEMATOCRIT 41.3 % (38.0-50.0); IMMATURE GRANULOCYTE (%) 0.2 % (0.0-0.7); INSTRUMENT ABS NEUTROPHIL CT 6.9 K/uL; LYMPHOCYTE COUNT 0.9 K/uL (1.0-2.8); MCH 26.9 PG (29.0-34.0); MCHC 30.5 G/DL (30.0-36.0); MCV 88.2 FL (86-99); MEAN PLAT.VOLUME 10.9 uM^3 (9.0-12.4); MONOCYTE (%) 10.4 % (3-12); MONOCYTE COUNT 0.9 K/uL (0-0.8); NEUTROPHIL (%) 77.7 % (45-76); NEUTROPHIL COUNT 6.9 K/uL (1.8-6.4); PLATELET COUNT 287 K/uL (156-360); RBC DIS.WIDTH-CV 15.9 % (11.8-14.6); RBC DIS.WIDTH-SD 50.8 % (39-53); RED BLOOD COUNT 4.68 M/uL (4.00-5.50); WHITE BLOOD COUNT 8.8 K/uL (4.1-10.2)
[2017-01-29 22:18] LABS: CHLORIDE 100 mEq/L (99-109); POTASSIUM 3.4 mEq/L (3.7-5.4); SODIUM 138 mEq/L (136-147)
[2017-01-29 22:20] LABS: GLUCOSE 172 mg/dL (70-99)
[2017-01-29 22:21] LABS: ANION GAP 10 MEQ/L (2-14)
[2017-01-29 22:22] LABS: TOTAL BILIRUBIN 2.3 mg/dL (0.0-1.0)
[2017-01-29 22:23] LABS: ALKALINE PHOSPHATASE 142 IU/L (3-129)
[2017-01-29 22:24] LABS: GFR ESTIMATE (CALCULATED) > 59 mL/min/
[2017-01-29 22:25] LABS: UREA NITROGEN (BUN) 21 mg/dL (9-23)
[2017-01-29 22:33] LABS: TROP-I INTERPRETATION NEGATIVE; TROPONIN-I 0.08 ng/mL (0.0-0.30)
[2017-01-29 23:42] VITALS: BP 131/76
== END 2017-01-29 23:43 | disposition home or self-care (01) ==
LOC: EME 20:37
PROVIDERS: Emergency Medicine
DX: M79.672 Pain in left foot (principal); I10 Essential (primary) hypertension; I25.10 Atherosclerotic heart disease of native coronary artery without angina pectoris; M79.89 Other specified soft tissue disorders; Z91.81 History of falling; Z95.811 Presence of heart assist device; Z95.1 Presence of aortocoronary bypass graft; Z87.891 Personal history of nicotine dependence
CPT/HCPCS: 73610; 73630; 80053; 84484; 85025; 93005; 99281; 99285

== ENCOUNTER 2017-02-26 14:14 | Inpatient (IN) | payer OTHER, BC ==
[~2017-02-26] VITALS: Ht 182.9 cm; Wt 83.0 kg
[2017-02-26] VITALS (7 sets, daily range): BP systolic 90–113; BP diastolic 45–68
[~2017-02-26 14:14] MED LIST changes: +LISINOPRIL5 MG PO
[2017-02-26 15:17] LABS: CHLORIDE 109 mEq/L (99-109); INTER. NORMALIZED RATIO 1.4; POTASSIUM 5.2 mEq/L (3.7-5.4); PROTHROMBIN TIME 14.4 (9.2-11.2); PTT 26.5 (25-32); SODIUM 138 mEq/L (136-147)
[2017-02-26 15:20] LABS: ANION GAP 7 MEQ/L (2-14); HEMATOCRIT 23.2 % (38.0-50.0); MCH 26.3 PG (29.0-34.0); MCV 84.7 FL (86-99); MEAN PLAT.VOLUME 10.1 uM^3 (9.0-12.4); PLATELET COUNT 245 K/uL (156-360); RBC DIS.WIDTH-CV 17.2 % (11.8-14.6); RBC DIS.WIDTH-SD 53.2 % (39-53); RED BLOOD COUNT 2.74 M/uL (4.00-5.50); WHITE BLOOD COUNT 9.7 K/uL (4.1-10.2)
[2017-02-26 15:21] LABS: TOTAL BILIRUBIN 1.6 mg/dL (0.0-1.0)
[2017-02-26 15:23] LABS: ALKALINE PHOSPHATASE 93 IU/L (3-129); GFR ESTIMATE (CALCULATED) 45 mL/min/
[2017-02-26 15:24] LABS: UREA NITROGEN (BUN) 63 mg/dL (9-23)
[2017-02-26 15:25] LABS: GLUCOSE 114 mg/dL (70-99)
[2017-02-26 15:27] LABS: TROP-I INTERPRETATION NEGATIVE; TROPONIN-I 0.06 ng/mL (0.0-0.30)
[2017-02-26] MEDS ORDERED: KLOR-CON M2020 MEQ PO (19:37)
[2017-02-26] MEDS ORDERED: BISAC-EVAC10 MG PR (19:39)
[2017-02-26] MEDS ORDERED: MILK OF MAGN PO (19:40)
[2017-02-26] MEDS ORDERED: ENEMA133 M2 PR (19:42)
[2017-02-26] MEDS ORDERED: INDOMETHACIN50 MG PO (19:42)
[2017-02-26] MEDS ORDERED: TRAZODONE HCL50 MG PO (19:43)
[2017-02-26] MEDS ORDERED: FLOMAX0.4 MG PO (19:44)
[2017-02-26] MEDS ORDERED: FUROSEMIDE40 MG PO (19:44)
[2017-02-26] MEDS ORDERED: TYLENOL REGULA325 MG PO (19:45)
[2017-02-26] MEDS ORDERED: CATAPRES0.1 MG PO (19:45)
[2017-02-27] VITALS (15 sets, daily range): BP systolic 90–134; BP diastolic 51–94
[2017-02-27 01:57] LABS: METH RESISTANT S AUREUS PCR POSITIVE (NEGATIVE)
[2017-02-27 01:58] LABS: PROBE CHECK PASS
[2017-02-27 07:09] LABS: HEMATOCRIT 22.5 % (38.0-50.0); MCV 86.9 FL (86-99)
[2017-02-27 07:45] LABS: ALKALINE PHOSPHATASE 84 IU/L (3-129); ANION GAP 10 MEQ/L (2-14); CHLORIDE 110 MEQ/L (99-109); GFR ESTIMATE (CALCULATED) 49 mL/min/; POTASSIUM 4.3 MEQ/L (3.7-5.4); SAMPLE HEMOLYSIS CHECK 0; SAMPLE ICTERIC CHECK 0; SAMPLE LIPEMIA CHECK 0; SODIUM 141 MEQ/L (136-147); TOTAL BILIRUBIN 1.7 MG/DL (0.0-1.0); UREA NITROGEN (BUN) 52 mg/dL (9-23)
[2017-02-27 07:50] LABS: GLUCOSE 77 mg/dL (70-99)
[2017-02-27 20:12] LABS: HEMATOCRIT 27.2 % (38.0-50.0); MCV 86.3 FL (86-99)
[2017-02-28] VITALS (7 sets, daily range): BP systolic 115–148; BP diastolic 55–76
[2017-02-28 10:36] LABS: HEMATOCRIT 29.2 % (38.0-50.0); MCV 88.5 FL (86-99)
[2017-02-28 20:10] LABS: HEMATOCRIT 29.3 % (38.0-50.0); MCV 87.7 FL (86-99)
[2017-03-01 03:30] VITALS: BP 124/93
[2017-03-01 06:04] LABS: BASOPHIL COUNT 0.1 K/uL (0-0.1); EOSINOPHIL (%) 4.8 % (0-5); EOSINOPHIL COUNT 0.4 K/uL (0-0.3); HEMATOCRIT 28.1 % (38.0-50.0); IMMATURE GRANULOCYTE (%) 0.3 % (0.0-0.7); INSTRUMENT ABS NEUTROPHIL CT 5.3 K/uL; LYMPHOCYTE COUNT 0.9 K/uL (1.0-2.8); MCHC 31.7 G/DL (30.0-36.0); MCV 88.4 FL (86-99); MEAN PLAT.VOLUME 10.9 uM^3 (9.0-12.4); MONOCYTE (%) 8.1 % (3-12); MONOCYTE COUNT 0.6 K/uL (0-0.8); NEUTROPHIL (%) 73.2 % (45-76); NEUTROPHIL COUNT 5.3 K/uL (1.8-6.4); PLATELET COUNT 224 K/uL (156-360); RBC DIS.WIDTH-CV 17.1 % (11.8-14.6); RBC DIS.WIDTH-SD 54.2 % (39-53); RED BLOOD COUNT 3.18 M/uL (4.00-5.50); WHITE BLOOD COUNT 7.3 K/uL (4.1-10.2)
[2017-03-01 06:25] LABS: ANION GAP 9 MEQ/L (2-14); CHLORIDE 107 MEQ/L (99-109); GFR ESTIMATE (CALCULATED) > 59 mL/min/; GLUCOSE 77 mg/dL (70-99); POTASSIUM 3.5 MEQ/L (3.7-5.4); SAMPLE HEMOLYSIS CHECK 0; SAMPLE ICTERIC CHECK 0; SAMPLE LIPEMIA CHECK 0; SODIUM 139 MEQ/L (136-147); UREA NITROGEN (BUN) 26 mg/dL (9-23)
[2017-03-01 07:45] VITALS: BP 123/67
[2017-03-01 11:34] VITALS: BP 124/79
[2017-03-01 16:01] VITALS: BP 117/70
[2017-03-01 19:52] VITALS: BP 120/68
[2017-03-01 20:00] LABS: MCV 87.6 FL (86-99)
[2017-03-01 23:29] VITALS: BP 111/73
[2017-03-02 03:38] VITALS: BP 114/67
[2017-03-02 07:56] LABS: HEMATOCRIT 29.5 % (38.0-50.0); MCHC 31.2 G/DL (30.0-36.0); MCV 89.7 FL (86-99); MEAN PLAT.VOLUME 10.8 uM^3 (9.0-12.4); PLATELET COUNT 235 K/uL (156-360); RBC DIS.WIDTH-CV 17.6 % (11.8-14.6); RBC DIS.WIDTH-SD 55.4 % (39-53); RED BLOOD COUNT 3.29 M/uL (4.00-5.50)
[2017-03-02 08:02] LABS: HEMATOCRIT 29.5 % (38.0-50.0); MCV 89.7 FL (86-99)
[2017-03-02 08:11] LABS: ANION GAP 7 MEQ/L (2-14); CHLORIDE 107 MEQ/L (99-109); GFR ESTIMATE (CALCULATED) > 59 mL/min/; GLUCOSE 74 mg/dL (70-99); POTASSIUM 3.4 MEQ/L (3.7-5.4); SAMPLE HEMOLYSIS CHECK 0; SAMPLE ICTERIC CHECK 0; SAMPLE LIPEMIA CHECK 0; SODIUM 138 MEQ/L (136-147); UREA NITROGEN (BUN) 18 mg/dL (9-23)
[2017-03-02 09:00] VITALS: BP 107/69
[2017-03-02 11:36] VITALS: BP 104/64
[2017-03-02] MEDS ORDERED: PROTONIX40 MG PO (11:58)
[2017-03-02] MEDS ORDERED: CIPRO500 MG PO (11:59)
[2017-03-02] MEDS ORDERED: FLOMAX0.4 MG PO (12:00)
[2017-03-02] MEDS ORDERED: FUROSEMIDE40 MG PO (12:02)
[2017-03-02] MEDS ORDERED: ZOFRAN4 MG PO (12:03)
== END 2017-03-02 15:10 | disposition home or self-care (01) | DRG 378 ==
LOC: EME 14:14 → EDOF 20:53 → 4EAST 20:53 → EDOF 21:59 → 4EAST 23:13
PROVIDERS: Emergency Medicine; Hospitalist; Internal Medicine; Internal Medicine Gastroenterology
PROC: 30233N1 Transfusion of Nonautologous Red Blood Cells into Peripheral Vein, Percutaneous Approach (ICD-10-PCS; principal; 2017-02-26)
PROC: 0DB68ZX Excision of Stomach, Via Natural or Artificial Opening Endoscopic, Diagnostic (ICD-10-PCS; 2017-02-28)
DX: K26.4 Chronic or unspecified duodenal ulcer with hemorrhage (principal); K25.9 Gastric ulcer, unspecified as acute or chronic, without hemorrhage or perforation; N18.3 Chronic kidney disease, stage 3 (moderate); I50.42 Chronic combined systolic (congestive) and diastolic (congestive) heart failure; K21.9 Gastro-esophageal reflux disease without esophagitis; I25.10 Atherosclerotic heart disease of native coronary artery without angina pectoris; I13.0 Hypertensive heart and chronic kidney disease with heart failure and stage 1 through stage 4 chronic kidney disease, or unspecified chronic kidney disease; L03.116 Cellulitis of left lower limb; L03.115 Cellulitis of right lower limb; K57.91 Diverticulosis of intestine, part unspecified, without perforation or abscess with bleeding; I47.2 Ventricular tachycardia; K29.70 Gastritis, unspecified, without bleeding; G47.00 Insomnia, unspecified; I25.5 Ischemic cardiomyopathy; F03.90 Unspecified dementia, unspecified severity, without behavioral disturbance, psychotic disturbance, mood disturbance, and anxiety; D62 Acute posthemorrhagic anemia; Z82.49 Family history of ischemic heart disease and other diseases of the circulatory system; Z95.810 Presence of automatic (implantable) cardiac defibrillator; Z87.891 Personal history of nicotine dependence; Z95.1 Presence of aortocoronary bypass graft; Z87.11 Personal history of peptic ulcer disease; Z86.74 Personal history of sudden cardiac arrest
CPT/HCPCS: 36415; 80048; 80053; 80069; 84484; 85014; 85018; 85025; 85027; 85610; 85730; 86900; 86901; 86920; 87641; 88305; 88342 TC; 93005; 99202; 99281; 99285; C9113; J0744; J1940; J7030; P9016

== ENCOUNTER 2017-04-08 23:06 | Emergency (ER) | payer OTHER, BC ==
[~2017-04-08] VITALS: Ht 182.9 cm; Wt 91.1 kg
[~2017-04-08 23:06] MED LIST changes: +CATAPRES0.1 MG PO; +CIPRO500 MG PO; +ENEMA133 M2 PR; +FLOMAX0.4 MG PO; +INDOMETHACIN50 MG PO; +KLOR-CON M2020 MEQ PO; +MILK OF MAGN PO; +PROTONIX40 MG PO; +TRAZODONE HCL50 MG PO; +TYLENOL REGULA325 MG PO; +ZOFRAN4 MG PO
[2017-04-09 01:21] VITALS: BP 121/76
== END 2017-04-09 01:26 | disposition home or self-care (01) ==
LOC: EME → EDBD 23:06 → EME 23:06
DX: Z04.3 Encounter for examination and observation following other accident (principal); Z86.73 Personal history of transient ischemic attack (TIA), and cerebral infarction without residual deficits; K21.9 Gastro-esophageal reflux disease without esophagitis; E78.5 Hyperlipidemia, unspecified; I10 Essential (primary) hypertension; Z95.1 Presence of aortocoronary bypass graft; Z87.891 Personal history of nicotine dependence
CPT/HCPCS: 70450; 93005; 99281; 99284